=== PATIENT | male | born 1940 | race Caucasian/White ===

== ENCOUNTER 2017-09-11 16:35 | Emergency (ER) | payer MEDICARE ==
[2017-09-11 17:22] LABS: BASOPHILS 0.3 % (0-2); EOSINOPHILS 3.6 % (0-7); HEMOGLOBIN 11.1 g/dL (13.5-17.5); IMMATURE GRANULOCYTES 0.4 % (0-5); LYMPHOCYTES 14.8 % (15-50); MCH 29.4 pg (26.0-34.0); MCHC 31.7 g/dL (31.0-37.0); MCV 92.6 fL (80.0-100.0); MEAN PLATELET VOLUME 10.9 fL (7.4-10.4); MONOCYTES 7.8 % (2-11); NEUTROPHILS 73.1 % (40-80); PLATELET COUNT 165 10x3/uL (130-400); RBC 3.78 10x6/uL (4.20-6.10); RDW 15.1 % (11.5-14.5); WBC 7.5 10x3/uL (4.8-10.8)
[2017-09-11 18:01] LABS: ALBUMIN 2.6 g/dL (3.4-5.0); ALKALINE PHOSPHATASE 132 U/L (46-116); ALT (SGPT) 19 U/L (10-68); CALC OSMOLALITY 287 mosm/kg (275-300); CALCIUM 8.3 mg/dL (8.5-10.1); CHLORIDE - SERUM 107 mmol/L (98-107); CREATININE - SERUM 1.2 mg/dL (0.6-1.3); GLUCOSE 87 mg/dL (74-106); POTASSIUM - SERUM 4.4 mmol/L (3.5-5.1); PROTEIN - SERUM 6.7 g/dL (6.4-8.2); SODIUM 143 mmol/L (136-145); UREA NITROGEN 25 mg/dL (7-18); eGFR NON AFRICAN AMERICAN 63 mL/min (90-120)
[2017-09-11 18:10] LABS: CHOL - HDL RATIO 2.8 ratio (2.3-4.9); CHOLESTEROL, TOTAL 122 mg/dL (0-200); CKMB 0.9 U/L (0.0-3.6); CREATINE KINASE 75 UL (21-232); HDL CHOLESTEROL 44 mg/dL (32-96); LDL CHOLESTEROL 54 mg/dL (0-100); LDL-HDL RATIO 1.2 ratio (1.5-3.5); TRIGLYCERIDE 120 mg/dL (30-200); TROPONIN-I 0.017 ng/mL (0.000-0.060)
[2017-09-11 21:03] LABS: TROPONIN-I 0.025 ng/mL (0.000-0.060)
== END 2017-09-11 21:50 | disposition home or self-care (01) ==
LOC: D.ER 16:35
PROVIDERS: Family Medicine
DX: R07.9 Chest pain, unspecified (principal); Z95.0 Presence of cardiac pacemaker; J44.9 Chronic obstructive pulmonary disease, unspecified

== ENCOUNTER 2017-09-24 16:15 | Emergency (ER) | payer MEDICARE ==
[~2017-09-24] VITALS: Ht 185.4 cm; Wt 65.5 kg
[2017-09-24] MEDS ORDERED: ACETAMINOPHEN500 M1 PO (16:28)
[2017-09-24] MEDS ORDERED: ZYLOPRIM100 MG PO (16:29)
[2017-09-24] MEDS ORDERED: XANAX0.5 MG PO (16:30)
[2017-09-24] MEDS ORDERED: CARDURA4 MG PO (16:31)
[2017-09-24] MEDS ORDERED: CATAPRES0.1 MG PO (16:31)
[2017-09-24] MEDS ORDERED: FERROUS SULFAT325 MG PO (16:33)
[2017-09-24] MEDS ORDERED: NEURONTIN 300300 MG PO (16:34)
[2017-09-24] MEDS ORDERED: PROSCAR5 MG PO (16:34)
[2017-09-24] MEDS ORDERED: METOPROLOL TART50 MG PO (16:36)
[2017-09-24] MEDS ORDERED: MECLIZINE HCL25 MG PO (16:37)
[2017-09-24] MEDS ORDERED: CLARITIN 10 MG10 MG PO (16:37)
[2017-09-24] MEDS ORDERED: MIRALAX17 GM PO (16:38)
[2017-09-24] MEDS ORDERED: MULTIPLE VITAMI1 TA1 (16:39)
[2017-09-24] MEDS ORDERED: HYDROCODON-ACE1 EAC7 PO (16:40)
[2017-09-24] MEDS ORDERED: OMEPRAZOLE20 M1 PO (16:41)
[2017-09-24] MEDS ORDERED: ULTRAM50 MG PO (16:42)
[2017-09-24] MEDS ORDERED: PRAVASTATIN SOD10 MG PO (16:42)
[2017-09-24] MEDS ORDERED: CALAN120 MG PO (16:43)
[2017-09-24] MEDS ORDERED: ASCORBIC ACID500 MG PO (16:44)
[2017-09-24] MEDS ORDERED: AMBIEN10 MG PO (16:45)
[2017-09-24] MEDS ORDERED: COUMADIN5 MG PO (16:45)
[2017-09-24 16:53] VITALS: Ht 185.4 cm; Wt 65.5 kg
[2017-09-24 17:19] LABS: BASOPHILS 0.2 % (0-2); HEMATOCRIT 30.1 % (42.0-54.0); HEMOGLOBIN 9.5 g/dL (13.5-17.5); IMMATURE GRANULOCYTES 0.3 % (0-5); LYMPHOCYTES 15.8 % (15-50); MCH 30.2 pg (26.0-34.0); MCHC 31.6 g/dL (31.0-37.0); MCV 95.6 fL (80.0-100.0); MEAN PLATELET VOLUME 9.8 fL (7.4-10.4); MONOCYTES 7.5 % (2-11); NEUTROPHILS 72.2 % (40-80); PLATELET COUNT 139 10x3/uL (130-400); RBC 3.15 10x6/uL (4.20-6.10); RDW 17.8 % (11.5-14.5); WBC 6.4 10x3/uL (4.8-10.8)
[2017-09-24 17:37] LABS: ALBUMIN 2.6 g/dL (3.4-5.0); ALKALINE PHOSPHATASE 91 U/L (46-116); ALT (SGPT) 17 U/L (10-68); BILIRUBIN - TOTAL 0.25 mg/dL (0.2-1.3); CALC OSMOLALITY 282 mosm/kg (275-300); CALCIUM 8.5 mg/dL (8.5-10.1); CARBON DIOXIDE 30.5 mmol/L (21.0-32.0); CHLORIDE - SERUM 104 mmol/L (98-107); CREATININE - SERUM 1.5 mg/dL (0.6-1.3); GLUCOSE 99 mg/dL (74-106); POTASSIUM - SERUM 4.9 mmol/L (3.5-5.1); PROTEIN - SERUM 6.6 g/dL (6.4-8.2); SODIUM 139 mmol/L (136-145); UREA NITROGEN 27 mg/dL (7-18); eGFR NON AFRICAN AMERICAN 49 mL/min (90-120)
[2017-09-24 17:38] LABS: TROPONIN-I < 0.017 ng/mL (0.000-0.060)
[2017-09-24 17:39] LABS: APTT 38.2 SECONDS (22.8-39.4); INR 1.62 (0.85-1.17); PROTIME 18.7 SECONDS (11.6-15.0)
[2017-09-24 17:40] LABS: D-DIMER-QUANTITATIVE 0.94 ug/mLFEU (0.20-0.54)
[2017-09-24 18:01] LABS: CKMB 0.8 U/L (0.0-3.6); CREATINE KINASE 42 UL (21-232)
[2017-09-24 20:21] VITALS: BP 132/75
== END 2017-09-24 20:21 ==
LOC: D.ER 16:15
PROVIDERS: Family Medicine
DX: R07.9 Chest pain, unspecified (principal); D64.9 Anemia, unspecified; N28.9 Disorder of kidney and ureter, unspecified; Z95.0 Presence of cardiac pacemaker; J44.9 Chronic obstructive pulmonary disease, unspecified; N42.9 Disorder of prostate, unspecified; F17.200 Nicotine dependence, unspecified, uncomplicated

== ENCOUNTER 2018-08-07 11:33 | Inpatient (IN) | payer MEDICARE ==
[~2018-08-07] VITALS: Ht 177.8 cm; Wt 65.1 kg
[2018-08-07] VITALS (15 sets, daily range): BP systolic 117–167; BP diastolic 40–80; BMI 18.2
[~2018-08-07 11:33] MED LIST: ACETAMINOPHEN500 M1 PO; AMBIEN10 MG PO; ASCORBIC ACID500 MG PO; CALAN120 MG PO; CARDURA4 MG PO; CATAPRES0.1 MG PO; CLARITIN 10 MG10 MG PO; COUMADIN5 MG PO; FERROUS SULFAT325 MG PO; HYDROCODON-ACE1 EAC7 PO; MECLIZINE HCL25 MG PO; METOPROLOL TART50 MG PO; MIRALAX17 GM PO; MULTI-DAY VITAM1 TAB PO; NEURONTIN 300300 MG PO; OMEPRAZOLE20 M1 PO; PRAVASTATIN SOD10 MG PO; PROSCAR5 MG PO; ULTRAM50 MG PO; XANAX0.5 MG PO; ZYLOPRIM100 MG PO
[2018-08-07 12:24] LABS: BASOPHILS 0.4 % (0-2); EOSINOPHILS 0.8 % (0-7); IMMATURE GRANULOCYTES 0.2 % (0-5); LYMPHOCYTES 11.9 % (15-50); MCH 32.3 pg (26.0-34.0); MCV 104.5 fL (80.0-100.0); MEAN PLATELET VOLUME 9.7 fL (7.4-10.4); MONOCYTES 7.2 % (2-11); NEUTROPHILS 79.5 % (40-80); RBC 2.01 10x6/uL (4.20-6.10); RDW 15.7 % (11.5-14.5); WBC 4.9 10x3/uL (4.8-10.8)
[2018-08-07 12:30] LABS: PLATELET COUNT 223 10x3/uL (130-400)
[2018-08-07 12:31] LABS: HEMOGLOBIN 6.5 g/dL (13.5-17.5)
[2018-08-07 12:39] LABS: ALBUMIN 3.1 g/dL (3.4-5.0); ALKALINE PHOSPHATASE 45 U/L (46-116); ALT (SGPT) 11 U/L (10-68); BILIRUBIN - TOTAL 0.29 mg/dL (0.2-1.3); CALC OSMOLALITY 286 mosm/kg (275-300); CALCIUM 8.7 mg/dL (8.5-10.1); CARBON DIOXIDE 31.5 mmol/L (21.0-32.0); CHLORIDE - SERUM 105 mmol/L (98-107); CREATININE - SERUM 1.6 mg/dL (0.6-1.3); GLUCOSE 104 mg/dL (74-106); POTASSIUM - SERUM 4.6 mmol/L (3.5-5.1); PROTEIN - SERUM 6.6 g/dL (6.4-8.2); SODIUM 140 mmol/L (136-145); UREA NITROGEN 34 mg/dL (7-18); eGFR NON AFRICAN AMERICAN 45 mL/min (90-120)
[2018-08-07 12:50] LABS: CKMB 0.4 U/L (0.0-3.6); CREATINE KINASE 29 UL (21-232); TROPONIN-I 0.039 ng/mL (0.000-0.060)
[2018-08-07 14:36] LABS: APPEARANCE CLOUDY (CLEAR); BILIRUBIN NEGATIVE (NEGATIVE); COLOR YELLOW (YELLOW); GLUCOSE NEGATIVE (NEGATIVE); KETONE SMALL mg/dL (NEGATIVE); NITRITE POSITIVE (NEGATIVE); PROTEIN NEGATIVE (NEGATIVE); SPECIFIC GRAVITY 1.015 (1.005-1.020); UROBILINOGEN NORMAL (NORMAL)
[2018-08-07 14:38] LABS: RED CELLS - URINE 0-5 /hpf (0-5); WHITE CELLS - URINE 0-5 /hpf (0-5)
[2018-08-07 14:39] LABS: INR 2.64 (0.85-1.17); PROTIME 27.4 SECONDS (11.6-15.0)
[2018-08-07 14:41] LABS: BACTERIA FEW /hpf (NONE SEEN)
[2018-08-07 22:12] LABS: HEMATOCRIT 23.4 % (42.0-54.0); HEMOGLOBIN 7.6 g/dL (13.5-17.5)
[2018-08-08] VITALS (20 sets, daily range): BP systolic 113–161; BP diastolic 49–102; Ht 177.8 cm; Wt 65.1 kg
[2018-08-08 03:41] LABS: HEMATOCRIT 31.1 % (42.0-54.0); HEMOGLOBIN 10.5 g/dL (13.5-17.5); LYMPHOCYTES 12.7 % (15-50); MCH 31.3 pg (26.0-34.0); MCHC 33.8 g/dL (31.0-37.0); MCV 92.6 fL (80.0-100.0); MEAN PLATELET VOLUME 9.7 fL (7.4-10.4); NEUTROPHILS 76.2 % (40-80); PLATELET COUNT 185 10x3/uL (130-400); RBC 3.36 10x6/uL (4.20-6.10); RDW 19.8 % (11.5-14.5); WBC 5.8 10x3/uL (4.8-10.8)
[2018-08-08 03:49] LABS: INR 1.65 (0.85-1.17); PROTIME 18.9 SECONDS (11.6-15.0)
[2018-08-08 03:58] LABS: ANION GAP 10.1 mmol/L (8-16); CALCIUM 8.4 mg/dL (8.5-10.1); CARBON DIOXIDE 30.1 mmol/L (21.0-32.0); CREATININE - SERUM 1.3 mg/dL (0.6-1.3); MAGNESIUM - SERUM 2.1 mg/dL (1.8-2.4); PHOSPHOROUS 3.7 mg/dL (2.5-4.9); POTASSIUM - SERUM 4.2 mmol/L (3.5-5.1)
[2018-08-08 11:48] LABS: HEMATOCRIT 32.4 % (42.0-54.0); HEMOGLOBIN 10.4 g/dL (13.5-17.5)
[2018-08-08 18:47] LABS: HEMATOCRIT 31.3 % (42.0-54.0); HEMOGLOBIN 10.4 g/dL (13.5-17.5)
[2018-08-09] VITALS (13 sets, daily range): BP systolic 139–156; BP diastolic 43–64
[2018-08-09 04:18] LABS: BASOPHILS 0.3 % (0-2); EOSINOPHILS 4.3 % (0-7); HEMATOCRIT 31.3 % (42.0-54.0); HEMOGLOBIN 10.2 g/dL (13.5-17.5); IMMATURE GRANULOCYTES 0.2 % (0-5); LYMPHOCYTES 12.2 % (15-50); MCH 29.8 pg (26.0-34.0); MCHC 32.6 g/dL (31.0-37.0); MCV 91.5 fL (80.0-100.0); MEAN PLATELET VOLUME 10.1 fL (7.4-10.4); MONOCYTES 8.8 % (2-11); NEUTROPHILS 74.2 % (40-80); PLATELET COUNT 191 10x3/uL (130-400); RBC 3.42 10x6/uL (4.20-6.10); RDW 18.6 % (11.5-14.5); WBC 5.8 10x3/uL (4.8-10.8)
[2018-08-09 04:31] LABS: ALBUMIN 2.9 g/dL (3.4-5.0); ANION GAP 11.7 mmol/L (8-16); BILIRUBIN - TOTAL 0.65 mg/dL (0.2-1.3); CALCIUM 8.2 mg/dL (8.5-10.1); CARBON DIOXIDE 25.9 mmol/L (21.0-32.0); CREATININE - SERUM 1.2 mg/dL (0.6-1.3); POTASSIUM - SERUM 3.6 mmol/L (3.5-5.1); PROTEIN - SERUM 6.3 g/dL (6.4-8.2)
[2018-08-09 04:32] LABS: INR 1.77 (0.85-1.17)
[2018-08-09 11:12] LABS: FOLATE (FOLIC ACID) - SERUM >20.0 ng/mL (>3.0)
[2018-08-09 17:46] LABS: APPEARANCE CLEAR (CLEAR); BACTERIA FEW /hpf (NONE SEEN); BILIRUBIN NEGATIVE (NEGATIVE); COLOR YELLOW (YELLOW); GLUCOSE NEGATIVE (NEGATIVE); KETONE NEGATIVE (NEGATIVE); NITRITE NEGATIVE (NEGATIVE); PROTEIN NEGATIVE (NEGATIVE); RED CELLS - URINE 0-5 /hpf (0-5); UROBILINOGEN NORMAL (NORMAL); WHITE CELLS - URINE OCC /hpf (0-5)
[2018-08-10 00:14] VITALS: BP 153/55
[2018-08-10 04:29] VITALS: BP 156/62
[2018-08-10 07:44] LABS: BASOPHILS 0.3 % (0-2); EOSINOPHILS 4.1 % (0-7); HEMATOCRIT 33.2 % (42.0-54.0); HEMOGLOBIN 10.8 g/dL (13.5-17.5); IMMATURE GRANULOCYTES 0.2 % (0-5); LYMPHOCYTES 10.8 % (15-50); MCH 30.2 pg (26.0-34.0); MCHC 32.5 g/dL (31.0-37.0); MCV 92.7 fL (80.0-100.0); MEAN PLATELET VOLUME 10.4 fL (7.4-10.4); MONOCYTES 9.9 % (2-11); NEUTROPHILS 74.7 % (40-80); PLATELET COUNT 185 10x3/uL (130-400); RBC 3.58 10x6/uL (4.20-6.10); RDW 16.9 % (11.5-14.5)
[2018-08-10 07:50] LABS: ANION GAP 10.7 mmol/L (8-16); BILIRUBIN - TOTAL 0.56 mg/dL (0.2-1.3); CALCIUM 8.7 mg/dL (8.5-10.1); CARBON DIOXIDE 29.5 mmol/L (21.0-32.0); CREATININE - SERUM 1.1 mg/dL (0.6-1.3); PROTEIN - SERUM 6.6 g/dL (6.4-8.2)
[2018-08-10 07:51] LABS: POTASSIUM - SERUM 4.2 mmol/L (3.5-5.1)
[2018-08-10 08:29] LABS: INR 1.43 (0.85-1.17); PROTIME 16.8 SECONDS (11.6-15.0)
[2018-08-10 09:44] VITALS: BP 134/59
--- NOTE | 2018-08-10 12:13 | MORECARE ---
CASE MANAGEMENT DISCHARGE SUMMARY PATIENT: LATISHA PRIEST UNIT: [id number] ADM DATE: 08/07/18 AGE: 77 : 44 SEX: M ROOM/BED: D.1209 AUTHOR: EVERARDO BAH PHYSICIAN: REFERRING PHYSICIAN: CRUZ TINEO MD DATE OF SERVICE: 08/10/18 Discharge Plan Patient Name: LATISHA PRIEST [facility] [facility] 1940 Planned Disposition: Home Anticipated Discharge Date: Discharge Date: Expected LOS: Initial Reviewer: [email or web address] Initial Review Date: 08/10/2018 Generated: 08/10/18 1:13 pm Patient Name: LATISHA PRIEST Page [id number] at 1213 All edits/amendments must be made on the electronic document DICTATION DATE: 08/10/18 1213 WATER SUPPLY TECHNICIAN: JODIE 08/10/18 1213 RPT#: [id number] DC DATE: STATUS: ADM IN [facility] [address] [place] [address] END OF REPORT
--- NOTE | 2018-08-10 12:20 | MORECARE ---
CASE MANAGEMENT DISCHARGE SUMMARY PATIENT: LATISHA PRIEST UNIT: [id number] ADM DATE: 08/07/18 AGE: 77 : 42 SEX: M ROOM/BED: D.1209 AUTHOR: NIURKA,DOC PHYSICIAN: REFERRING PHYSICIAN: CRUZ TINEO MD DATE OF SERVICE: 08/10/18 Discharge Plan Patient Name: LATISHA PRIEST Facility: [facility]:[place] : 1940 Planned Disposition: Home Anticipated Discharge Date: Discharge Date: Expected LOS: Initial Reviewer: [email or web address] Initial Review Date: 08/10/2018 Generated: 08/10/18 1:20 pm Comments DCP- Discharge Planning Updated by [email or web address]: Violeta Davila on 08/10/18 11:[address] Patient Name: LATISHA PRIEST Admission Status: ER Accout number: [id number] Admission Date: 08-07-2018 : 1940 Admission Diagnosis:ACUTE POSTHEMORRHAGIC ANEMIA Attending: CRUZ TINEO Current LOS: 3 Anticipated DC Date: Planned Disposition: Home Primary Insurance: [facility] MEDICARE SOLUTIONS Discharge Planning Comments: CM met with patient and Shanelle at bedside. Patient states that he lives at home with his (Shanelle) and plans to return there upon discharge. Patient states that he has a wheelchair manual and electric. Patient states that he has had home health in the past but not recently. Patient denies any discharge needs at this time. D/c IMM explained and served 08/10/18 @1107. CM will continue to follow and assist as needed with discharge planning / needs. Technologies Division Chair: Violeta Davila DCPIA - Discharge Planning Initial Assessment Updated by [email or web address]: Violeta Davila on 08/10/18 12:14 pm * Is the patient Alert and Oriented? Yes * How many steps to enter\exit or inside your home? ramp * PCP BLU ARMSTRONG * Pharmacy [facility] * Preadmission Environment Home with Family * ADLs Independent * Other Equipment WHEELCHAIR, ELECTRIC WHEELCHAIR * List name and contact numbers for known caregivers / representatives who currently or will assist patient after discharge: SHANELLE PRIEST - - [phone] * Verbal permission to speak to the caregivers and representatives has been obtained from the patient. Yes * Community resources currently utilized None * Additional services required to return to the preadmission environment? No * Can the patient safely return to the preadmission environment? Yes * Has this patient been hospitalized within the prior 30 days at any hospital? No Last DP export: 08/10/18 11:13 a Patient Name: LATISHA PRIEST Page [id number] at 1220 All edits/amendments must be made on the electronic document DICTATION DATE: 08/10/181218 FISH HATCHERY SUPERVISOR: JODIE 08/10/181218 RPT#: [id number] DC DATE: STATUS: ADM IN [facility] [address] [place] [address] END OF REPORT
[2018-08-10 13:33] VITALS: BP 142/54
--- NOTE | 2018-08-10 17:26 | MORECARE ---
CASE MANAGEMENT DISCHARGE SUMMARY PATIENT: LATISHA GUSTAFSON UNIT: [id number] ADM DATE: 08/07/18 AGE: 77 : 42 SEX: M ROOM/BED: D.1209 AUTHOR: NIURKA,DOC PHYSICIAN: REFERRING PHYSICIAN: CRZU TINEO MD DATE OF SERVICE: 08/10/18 Discharge Plan Patient Name: LATISHA GUSTAFSON Facility: [facility]:[place] : 1940 Planned Disposition: Home Anticipated Discharge Date: Discharge Date: 08/10/2018 Expected LOS: Initial Reviewer: [email or web address] Initial Review Date: 08/10/2018 Generated: 08/10/18 6:26 pm Comments DCP- Discharge Planning Updated by [email or web address]: Violeta Davila on 08/10/18 11:[address] Patient Name: LATISHA GUSTAFSON Admission Status: ER Accout number: [id number] Admission Date: 08-07-2018 : 1940 Admission Diagnosis:ACUTE POSTHEMORRHAGIC ANEMIA Attending: CRUZ TINEO Current LOS: 3 Anticipated DC Date: Planned Disposition: Home Primary Insurance: [facility] MEDICARE SOLUTIONS Discharge Planning Comments: CM met with patient and Shanelle at bedside. Patient states that he lives at home with his (Shanelle) and plans to return there upon discharge. Patient states that he has a wheelchair manual and electric. Patient states that he has had home health in the past but not recently. Patient denies any discharge needs at this time. D/c IMM explained and served 08/10/18 @1107. CM will continue to follow and assist as needed with discharge planning / needs. Butter Wrapper: Violeta Davila DCPIA - Discharge Planning Initial Assessment Updated by [email or web address]: Violeta Davila on 08/10/18 12:14 pm * Is the patient Alert and Oriented? Yes * How many steps to enter\exit or inside your home? ramp * PCP BLU ARMSTRONG * Pharmacy [facility] * Preadmission Environment Home with Family * ADLs Independent * Other Equipment WHEELCHAIR, ELECTRIC WHEELCHAIR * List name and contact numbers for known caregivers / representatives who currently or will assist patient after discharge: SHANELLE GUSTAFSON - - [phone] * Verbal permission to speak to the caregivers and representatives has been obtained from the patient. Yes * Community resources currently utilized None * Additional services required to return to the preadmission environment? No * Can the patient safely return to the preadmission environment? Yes * Has this patient been hospitalized within the prior 30 days at any hospital? No Coverage Notice Reviewer: [email or web address] Everett Davila Notice Issued Date-Time: 08/10/2018 11:07 Notice Type: IM Discharge Notice Notice Delivered To: Family Member Relationship to Patient: Spouse Administrative Dietitian Name: Shanelle Gustafson Delivery Method: HAND - Hand Delivered Cindy Days: Prior Verbal Notification: Recipient Understood Notice: Yes Recipient Signature: Yes Med Rec Note Co-signed by Attending: Coverage Notice Comment: Last DP export: 08/10/18 11:20 a Patient Name: LATISHA GUSTAFSON Page [id number] at 1726 All edits/amendments must be made on the electronic document DICTATION DATE: 08/10/181725 LIBRARY INFORMATION TECHNICIAN: JODIE 08/10/181725 RPT#: [id number] DC DATE:08/10/18 STATUS: DIS IN [facility] [address] [place] [address] END OF REPORT
== END 2018-08-10 15:20 | disposition home or self-care (01) | DRG 378 ==
LOC: D.ER 11:33 → D.CVICU 14:33 → D.EDHOLD 14:33 → D.M3 14:33 → D.CVICU 14:43 → D.M3 08-09 13:50
PROVIDERS: Family Medicine; Internal Medicine Gastroenterology; Internal Medicine Nephrology; ADMIT Family Medicine; ATTEND Family Medicine
PROC: 0DB78ZX Excision of Stomach, Pylorus, Via Natural or Artificial Opening Endoscopic, Diagnostic (ICD-10-PCS; 2018-08-07)
PROC: 0W3P8ZZ Control Bleeding in Gastrointestinal Tract, Via Natural or Artificial Opening Endoscopic (ICD-10-PCS; principal; 2018-08-07 16:59)
DX: K55.21 Angiodysplasia of colon with hemorrhage (principal); N17.9 Acute kidney failure, unspecified; D62 Acute posthemorrhagic anemia; E44.1 Mild protein-calorie malnutrition; Z68.1 Body mass index [BMI] 19.9 or less, adult; K29.71 Gastritis, unspecified, with bleeding; K44.9 Diaphragmatic hernia without obstruction or gangrene; F41.9 Anxiety disorder, unspecified; J44.9 Chronic obstructive pulmonary disease, unspecified; N40.0 Benign prostatic hyperplasia without lower urinary tract symptoms; M19.90 Unspecified osteoarthritis, unspecified site; E86.0 Dehydration; Z79.01 Long term (current) use of anticoagulants; Z89.612 Acquired absence of left leg above knee; Z89.611 Acquired absence of right leg above knee

== ENCOUNTER → 2018-11-08 14:49 | Outpatient (CLI) | payer MEDICARE ==
[2018-08-08 10:57] VITALS: BMI 20.3
[2018-11-08 15:23] LABS: BASOPHILS 0.5 % (0-2); EOSINOPHILS 8.2 % (0-7); HEMATOCRIT 41.1 % (42.0-54.0); IMMATURE GRANULOCYTES 0.2 % (0-5); LYMPHOCYTES 18.6 % (15-50); MCH 30.6 pg (26.0-34.0); MCHC 34.1 g/dL (31.0-37.0); MCV 89.9 fL (80.0-100.0); MEAN PLATELET VOLUME 9.6 fL (7.4-10.4); MONOCYTES 8.2 % (2-11); NEUTROPHILS 64.3 % (40-80); PLATELET COUNT 162 10x3/uL (130-400); RBC 4.57 10x6/uL (4.20-6.10); WBC 6.2 10x3/uL (4.8-10.8)
== END | disposition home or self-care (01) ==
LOC: D.LAB 14:49
PROVIDERS: ATTEND Internal Medicine Gastroenterology
DX: K59.09 Other constipation (principal); D64.9 Anemia, unspecified; Q27.30 Arteriovenous malformation, site unspecified